=== PATIENT | female | born 1960 | race Caucasian/White ===

== ENCOUNTER 2021-08-16 05:46 | Observation (INO) ==
[2021-08-16] MEDS ORDERED: Aspirin 81 MG TAB.CHEW PO ONE (05:58)
[2021-08-16 06:20] LABS: Basophils # 0.1 K/mcL (0.0-0.2); Basophils % 0.6 %; Eosinophils # 0.2 K/mcL (0.0-0.6); Eosinophils % 1.7 %; Hematocrit 32.3 % (35.3-44.9); Hemoglobin 10.3 g/dL (11.5-15.4); Immature Granulocytes % 0.6 % (0-4); Lymphocytes # 0.4 K/mcL (0.6-4.6); Lymphocytes % 4.8 %; Mean Corpuscular HGB Conc 31.9 g/dL (31.6-35.5); Mean Corpuscular Hemoglobin 30.9 pg (28.0-33.3); Mean Platelet Volume 11.9 fL (9.4-12.4); Monocytes # 0.9 K/mcL (0.0-1.3); Monocytes % 10.3 %; Neutrophils # 7.3 K/mcL (1.6-8.9); Platelet Count 239 K/mcL (140-400); Red Blood Count 3.33 M/mcL (3.82-4.97); Red Cell Distribution Width 13.2 % (11.5-14.5); White Blood Count 8.9 K/mcL (4.3-11.1)
[2021-08-16 06:27] LABS: Prothrombin Time 11.3 Seconds (9.4-12.1)
[2021-08-16] MEDS ORDERED: Nitroglycerin 1 INCH/GM PACKET TP ONE (06:29)
[2021-08-16 06:48] LABS: BUN/Creatinine Ratio 28 (6-26); Blood Urea Nitrogen 54 mg/dL (8-23); Calcium 8.9 mg/dL (8.6-10.3); Carbon Dioxide 20 mEq/L (23-29); Chloride 111 mEq/L (98-107); Glucose 334 mg/dL (70-105); Osmolality,Calculated 320 (280-300); Potassium 4.9 mEq/L (3.5-5.1); Sodium 141 mEq/L (136-145); Troponin I < 0.03 ng/mL (< 0.04); eGFR For African Americans 32 (> 60); eGFR For Non-African Americans 26 (> 60)
[2021-08-16] MEDS ORDERED: Ondansetron 4 MG/2 ML VIAL IVP PRN (09:03)
[2021-08-16] MEDS ORDERED: *HR* Dextrose 50 % in Water (Syg) 50 ML SYRINGE IVP PRN (09:07)
[2021-08-16] MEDS ORDERED: D5% in Water 1,000 ML IVC PRN (09:07)
[2021-08-16] MEDS ORDERED: Dextrose Gel 15 GM/37.5 ML TUBE PO PRN ×2 (09:07)
[2021-08-16] MEDS ORDERED: Morphine Sulfate 2 MG/ML SYRINGE IVP PRN (09:08)
[2021-08-16] MEDS ORDERED: Regadenoson 0.4 MG/5 ML SYRINGE IVP ONE (10:54)
[2021-08-16 11:03] LABS: Estimated Average Glucose 212 mg/dl
[2021-08-16 11:42] LABS: Chol/HDL Ratio 4.8 (0-4.9)
[2021-08-16 11:45] LABS: Troponin I 0.04 ng/mL (< 0.04)
[2021-08-16] MEDS ORDERED: *HR* Heparin 5,000 UNIT/ML VIAL SQ SCH (14:00)
[2021-08-16] MEDS: hydrALAZINE 25 MG TABLET PO SCH ×3 (15:31→22:31)
[2021-08-16] MEDS: Insulin LISPRO 300 UNITS/3 ML VIAL SUBQ SCH ×3 (15:31→22:50)
[2021-08-16] MEDS ORDERED: *HR* Heparin 5,000 UNIT/ML VIAL IVP ONE (18:07)
[2021-08-16] MEDS ORDERED: *HR* Heparin 5,000 UNIT/ML VIAL IVP PRN ×2 (18:07)
[2021-08-16] MEDS: Insulin DETEMIR 100 UNIT/ML X5UNITS SUBQ SCH (19:15)
[2021-08-16 19:42] LABS: Hematocrit 29.7 % (35.3-44.9); Hemoglobin 9.6 g/dL (11.5-15.4); Mean Corpuscular HGB Conc 32.3 g/dL (31.6-35.5); Mean Corpuscular Hemoglobin 31.7 pg (28.0-33.3); Mean Platelet Volume 12.5 fL (9.4-12.4); Platelet Count 197 K/mcL (140-400); Red Blood Count 3.03 M/mcL (3.82-4.97); Red Cell Distribution Width 13.2 % (11.5-14.5); White Blood Count 5.6 K/mcL (4.3-11.1)
[2021-08-16 19:49] LABS: Heparin anti-factor XA UFH < 0.04 IU/mL (0.30-0.70); Prothrombin Time 11.2 Seconds (9.4-12.1)
[2021-08-16] MEDS: Heparin 25,000UNIT/250ML 1/2NS 25,000 UNIT/250 ML IV.SOLN IVC SCH (22:31)
[2021-08-17 05:48] LABS: Hematocrit 31.8 % (35.3-44.9); Hemoglobin 10.6 g/dL (11.5-15.4); Mean Corpuscular HGB Conc 33.3 g/dL (31.6-35.5); Mean Corpuscular Hemoglobin 32.3 pg (28.0-33.3); Mean Platelet Volume 11.5 fL (9.4-12.4); Platelet Count 200 K/mcL (140-400); Red Blood Count 3.28 M/mcL (3.82-4.97); Red Cell Distribution Width 13.2 % (11.5-14.5); White Blood Count 7.2 K/mcL (4.3-11.1)
[2021-08-17 06:05] LABS: Calcium 8.4 mg/dL (8.6-10.3); Potassium 4.8 mEq/L (3.5-5.1)
[2021-08-17] MEDS: hydrALAZINE 25 MG TABLET PO SCH ×3 (06:27→21:23)
[2021-08-17] MEDS ORDERED: Aspirin 81 MG TAB.CHEW PO SCH (09:00)
[2021-08-17] MEDS ORDERED: Perflutren Lipid Microsphere 1.3 ML in 0.9 % Sodium Chloride 8.7 ML IVP PRN (09:03)
[2021-08-17] MEDS: Insulin LISPRO 300 UNITS/3 ML VIAL SUBQ SCH ×4 (09:23→21:21)
[2021-08-17] MEDS: Insulin DETEMIR 100 UNIT/ML X5UNITS SUBQ SCH (09:25)
[2021-08-17] MEDS: amLODIPine 5 MG TABLET PO SCH (12:32)
[2021-08-17] MEDS: lisinopriL 20 MG TABLET PO SCH (12:32)
[2021-08-17] MEDS ORDERED: Nitroglycerin 1,000 MCG/5 ML VIAL IV ONE (14:02)
[2021-08-17] MEDS ORDERED: 0.9 % Sodium Chloride 2,000 ML ONE (14:02)
[2021-08-17] MEDS ORDERED: *HR* Heparin 10,000 UNIT/10 ML VIAL ONE (14:02)
[2021-08-17] MEDS ORDERED: Heparin 1,000 UNITS/500 mL 500 ML ONE (14:02)
[2021-08-17] MEDS ORDERED: ISOVUE-370 200 ML INFUS..BTL ONE (14:02)
[2021-08-17] MEDS ORDERED: *HR* FentaNYL (PF) 100 MCG/2 ML VIAL ONE (14:10)
[2021-08-17] MEDS ORDERED: *HR* Midazolam HCl 2 MG/2 ML VIAL ONE (14:11)
[2021-08-17] MEDS: Heparin 25,000UNIT/250ML 1/2NS 25,000 UNIT/250 ML IV.SOLN IVC SCH (17:47)
[2021-08-17] MEDS: 0.9 % Sodium Chloride 1,000 ML IVC SCH ×2 (18:01→22:53)
[2021-08-17] MEDS ORDERED: Famotidine 20 MG TABLET PO SCH (21:00)
[2021-08-17] MEDS ORDERED: NON-FORMULARY MEDICATION 1 EACH EACH (Atorvastatin Calcium 80 MG Tablet) PO SCH (21:00)
[2021-08-17] MEDS: Gabapentin 400 MG CAPSULE PO SCH (21:22)
[2021-08-17] MEDS ORDERED: Metoprolol XL (24 HR) Succ 25 MG TAB.ER.24H PO ONE (21:26)
[2021-08-18 04:41] LABS: Calcium 7.9 mg/dL (8.6-10.3); Potassium 3.8 mEq/L (3.5-5.1)
[2021-08-18 04:44] LABS: Hematocrit 31.1 % (35.3-44.9); Hemoglobin 9.8 g/dL (11.5-15.4); Mean Corpuscular HGB Conc 31.5 g/dL (31.6-35.5); Mean Corpuscular Volume 98.4 fL (83.0-100.0); Mean Platelet Volume 11.6 fL (9.4-12.4); Platelet Count 180 K/mcL (140-400); Red Blood Count 3.16 M/mcL (3.82-4.97); Red Cell Distribution Width 13.5 % (11.5-14.5); White Blood Count 5.1 K/mcL (4.3-11.1)
[2021-08-18] MEDS: hydrALAZINE 25 MG TABLET PO SCH ×2 (05:55→12:33)
[2021-08-18] MEDS ORDERED: Aspirin 81 MG TAB.CHEW PO SCH (09:00)
[2021-08-18] MEDS ORDERED: Isosorbide MONOnitrate (24 HR) 60 MG TAB.ER.24H PO SCH (09:00)
[2021-08-18] MEDS: Insulin LISPRO 300 UNITS/3 ML VIAL SUBQ SCH (09:08)
[2021-08-18] MEDS: Insulin DETEMIR 100 UNIT/ML X5UNITS SUBQ SCH (09:08)
[2021-08-18] MEDS: Gabapentin 400 MG CAPSULE PO SCH (09:09)
[2021-08-18] MEDS: amLODIPine 5 MG TABLET PO SCH (09:10)
[2021-08-18] MEDS: lisinopriL 20 MG TABLET PO SCH (09:10)
[2021-08-18 11:21] VITALS: BP 139/53; PULSE 53; TEMP 97.8; O2SAT 99
[2021-08-18] MEDS: 0.9 % Sodium Chloride 1,000 ML IVC SCH (12:34)
== END 2021-08-18 15:30 | disposition home or self-care (01) ==
LOC: EMEROOARM 05:46 → 3NENU 05:46 → SUATTDRO 08:57 → 3NENU 10:08
PROVIDERS: ADMIT Internal Medicine; ATTEND Internal Medicine